=== PATIENT | female | born 1975 | race Caucasian/White ===

== ENCOUNTER 2018-12-25 17:10 | Outpatient (CLI) | payer OTHER ==
[~2018-12-25] VITALS: Ht 157.5 cm; Wt 85.0 kg
[2018-12-25 18:13] VITALS: BP 142/69
[2018-12-25 18:23] LABS: MEAN CORPUSCULAR HEMOGLOBIN 23.6 pg (27.0-34.8); MEAN CORPUSCULAR HGB CONC 31.5 g/dL (32.4-35.8); MEAN CORPUSCULAR VOLUME 74.8 fL (80-100); MEAN PLATELET VOLUME 8.2 fL (7.4-10.4); PLATELET COUNT 309 x10^3/uL (130-400); RED BLOOD COUNT 5.04 x10^6/uL (3.82-5.3); RED CELL DISTRIBUTION WIDTH 25.4 % (9.6-15.2)
[2018-12-25 18:25] LABS: ALANINE AMINOTRANSFERASE 60 U/L (12-78); ALBUMIN 2.4 g/dL (3.4-5.0); ANION GAP 10 mmol/L (5-15); CHLORIDE 112 mmol/L (98-107)
[2018-12-25 18:26] LABS: BILIRUBIN, DIRECT < 0.1 mg/dL (0.1-0.2)
[2018-12-25 18:28] LABS: ALKALINE PHOSPHATASE 141 U/L (45-117); BILIRUBIN,TOTAL 0.1 mg/dL (0.2-1.0); TOTAL PROTEIN 7.1 g/dL (6.4-8.2)
[2018-12-25 18:34] LABS: MICROSCOPIC AUTO
[2018-12-25 18:49] LABS: CREATININE,URINE RANDOM 28.2 mg/dL
[2018-12-25 19:05] LABS: BASOPHILS # (AUTO) 0.01 x10^3/uL (0-0.1); BASOPHILS % (AUTO) 0 % (0-1); EOSINOPHILS # (AUTO) 0.18 x10^3/uL (0-0.4); EOSINOPHILS % (AUTO) 2 % (1-7); LYMPHOCYTES # (AUTO) 2.17 x10^3/uL (1-3.4); LYMPHOCYTES % (AUTO) 23 % (22-44); MD MORPH REVIEW ONLY; MONOCYTES # (AUTO) 0.69 x10^3/uL (0.2-0.8); MONOCYTES % (AUTO) 7 % (2-9); NEUTROPHILS # (AUTO) 6.41 x10^3/uL (1.8-6.8); NEUTROPHILS % (AUTO) 68 % (42-75)
[2018-12-25 19:08] LABS: ANISOCYTOSIS 2+; MICROCYTOSIS 1+; POLYCHROMASIA 1+
[2018-12-25 19:09] LABS: <PLATELET ESTIMATE> ADEQUATE; <PLT MORPHOLOGY> NORMAL PLT MORPH
== END 2018-12-25 19:40 | disposition home or self-care (01) ==
LOC: LDOP 17:10
PROVIDERS: ATTEND Obstetrics & Gynecology
DX: O24.419 Gestational diabetes mellitus in pregnancy, unspecified control (principal); Z3A.34 34 weeks gestation of pregnancy
CPT/HCPCS: 36415; 59025; 80053; 81001; 81050; 82248; 82570; 84156; 84550; 85025; 99201; G0463

== ENCOUNTER 2019-01-12 15:44 | Inpatient (IN) | payer OTHER ==
[~2019-01-12] VITALS: Ht 157.5 cm; Wt 85.9 kg
[2019-01-12] MEDS ORDERED: LACTATED RINGERS 1,000 ML IV SCH (15:55)
[2019-01-12] MEDS ORDERED: OXYTOCIN 30U/ 0.9% NaCL 500ML 500 ML IV ONE (15:55)
[2019-01-12] MEDS ORDERED: METOCLOPRAMIDE 5 MG/ML, 2ML IVPush PRN (16:00)
[2019-01-12] MEDS ORDERED: FENTANYL PF 100 MCG/2ML IV PRN (16:00)
[2019-01-12] MEDS ORDERED: FENTANYL PF 100 MCG/2ML IVPush PRN (16:00)
[2019-01-12] MEDS ORDERED: TERBUTALINE 1 MG/ML, 1ML IVPush PRN (16:00)
[2019-01-12] MEDS ORDERED: SODIUM CITRATE/CITRIC ACID 30 ML UDC PO PRN (16:00)
[2019-01-12] MEDS ORDERED: ONDANSETRON 2MG/ML, 2ML IVPush PRN (16:00)
[2019-01-12 16:38] VITALS: BP 145/69
[2019-01-12] MEDS ORDERED: MISOPROSTOL 200 MCG TABLET ONE (16:48)
[2019-01-12] MEDS ORDERED: MISOPROSTOL 25 MCG TABLET ONE (16:48)
[2019-01-12] MEDS ORDERED: LIDOCAINE 1%, 20ML ONE (16:48)
[2019-01-12] MEDS ORDERED: NEWBORN KIT ONE (16:48)
[2019-01-12] MEDS ORDERED: OXYTOCIN 30U/ 0.9% NaCL 500ML 500 ML ONE (16:49)
[2019-01-12 16:57] LABS: MEAN CORPUSCULAR HEMOGLOBIN 25.5 pg (27.0-34.8); MEAN CORPUSCULAR HGB CONC 33.5 g/dL (32.4-35.8); MEAN CORPUSCULAR VOLUME 75.9 fL (80-100); MEAN PLATELET VOLUME 8.5 fL (7.4-10.4); PLATELET COUNT 261 x10^3/uL (130-400); RED BLOOD COUNT 5.12 x10^6/uL (3.82-5.3); RED CELL DISTRIBUTION WIDTH 25.3 % (9.6-15.2)
[2019-01-12 16:58] LABS: MICROSCOPIC AUTO
[2019-01-12] MEDS ORDERED: SODIUM CHLORIDE FLUSH 10ML SYR IVF PRN (17:00)
[2019-01-12 17:04] LABS: ALANINE AMINOTRANSFERASE 39 U/L (12-78); ALBUMIN 2.4 g/dL (3.4-5.0); ANION GAP 10 mmol/L (5-15); CALCIUM 8.5 mg/dL (8.5-10.1); CHLORIDE 111 mmol/L (98-107); CREATININE 0.34 mg/dL (0.55-1.02)
[2019-01-12] MEDS: MISOPROSTOL 25 MCG TABLET VG PRN (17:05)
[2019-01-12 17:06] LABS: ALKALINE PHOSPHATASE 158 U/L (45-117); BILIRUBIN,TOTAL 0.1 mg/dL (0.2-1.0); TOTAL PROTEIN 6.9 g/dL (6.4-8.2)
[2019-01-12 17:13] LABS: BASOPHILS # (AUTO) 0.03 x10^3/uL (0-0.1); BASOPHILS % (AUTO) 0 % (0-1); EOSINOPHILS # (AUTO) 0.23 x10^3/uL (0-0.4); EOSINOPHILS % (AUTO) 3 % (1-7); LYMPHOCYTES % (AUTO) 25 % (22-44); MD MORPH REVIEW ONLY; MONOCYTES # (AUTO) 0.56 x10^3/uL (0.2-0.8); MONOCYTES % (AUTO) 7 % (2-9); NEUTROPHILS # (AUTO) 4.96 x10^3/uL (1.8-6.8); NEUTROPHILS % (AUTO) 65 % (42-75)
[2019-01-12 17:14] LABS: CREATININE,URINE RANDOM 23.2 mg/dL
[2019-01-12 17:14] LABS: ANISOCYTOSIS 1+; MICROCYTOSIS 1+; POLYCHROMASIA 1+; TEAR DROPS 1+
[2019-01-12 17:15] LABS: <PLATELET ESTIMATE> ADEQUATE; <PLT MORPHOLOGY> NORMAL PLT MORPH; OVALOCYTES 1+; ROULEAUX 1+
[2019-01-12] MEDS ORDERED: ACETAMINOPHEN 325 MG TABLET ONE ×2 (18:26→22:17)
[2019-01-12] MEDS: ACETAMINOPHEN 325 MG TABLET PO PRN ×2 (18:28→22:25)
[2019-01-12] MEDS ORDERED: INSULIN NPH HUMAN 100 UNIT/ML, 3ML VIAL SQ-INSULIN ONE (18:30)
[2019-01-13] MEDS ORDERED: MISOPROSTOL 25 MCG TABLET ONE (00:05)
[2019-01-13] MEDS: MISOPROSTOL 25 MCG TABLET VG PRN (00:16)
[2019-01-13] MEDS ORDERED: OXYTOCIN 30U/ 0.9% NaCL 500ML 500 ML ONE (07:32)
[2019-01-13] MEDS ORDERED: OXYTOCIN 30U/ 0.9% NaCL 500ML 500 ML IV PRN (07:36)
[2019-01-13] MEDS: D5%-LACTATED RINGERS 1,000 ML IV SCH ×2 (07:47→17:12)
[2019-01-13] MEDS ORDERED: FENTANYL PF 100 MCG/2ML ONE ×2 (10:18→10:22)
[2019-01-13 11:05] VITALS: BP 170/77
[2019-01-13] MEDS ORDERED: LABETALOL 200 MG TABLET PO ONE (11:21)
[2019-01-13] MEDS ORDERED: LABETALOL 200 MG TABLET ONE (11:22)
[2019-01-13] MEDS ORDERED: FENTANYL/BUPIV./NS/PF 250 ML EPIDCONT SCH ×2 (11:35→19:12)
[2019-01-13] MEDS ORDERED: SODIUM CHLORIDE 0.9% 1,000 ML IV SCH (12:00)
[2019-01-13] MEDS ORDERED: FENTANYL PF 500 MCG, BUPIVACAINE/PF 0.5%, 30ML 62.5 ML in SODIUM CHLORIDE 0.9% 177.5 ML EPIDCONT SCH (12:00)
[2019-01-13] MEDS ORDERED: LIDOCAINE/PF 1.5%-EPI 1:200K, 30ML ONE ×2 (12:56→13:02)
[2019-01-13] MEDS ORDERED: FENTANYL/BUPIV./NS/PF 250 ML EPIDCONT ONE (13:02)
[2019-01-13] MEDS ORDERED: BUPIVACAINE 0.25% ONE (13:02)
[2019-01-13] MEDS ORDERED: LACTATED RINGERS 1,000 ML IV SCH (19:12)
[2019-01-13] MEDS ORDERED: DIPHENHYDRAMINE 50 MG/ML, 1ML IVPush PRN (19:30)
[2019-01-13] MEDS ORDERED: ONDANSETRON 2MG/ML, 2ML IVPush PRN (19:30)
[2019-01-13] MEDS ORDERED: EPHEDRINE 50 MG/ML, 1ML IVPush PRN (19:30)
[2019-01-13] MEDS ORDERED: LACTATED RINGERS 1,000 ML IVBOLUS PRN (19:30)
[2019-01-13] MEDS ORDERED: NALOXONE 0.4 MG/ML, 1ML IVPush PRN (19:30)
[2019-01-13 20:00] VITALS: BP 137/73
[2019-01-13] MEDS ORDERED: ACETAMINOPHEN 325 MG TABLET ONE (22:16)
[2019-01-13] MEDS: ACETAMINOPHEN 325 MG TABLET PO PRN (22:22)
[2019-01-14] MEDS: D5%-LACTATED RINGERS 1,000 ML IV SCH (00:27)
[2019-01-14] MEDS: OXYTOCIN 30U/ 0.9% NaCL 500ML 500 ML IV SCH ×3 (02:06→22:06)
[2019-01-14] MEDS ORDERED: IBUPROFEN 600 MG TABLET ONE (02:23)
[2019-01-14] MEDS ORDERED: OXYcodone/APAP 5/325MG TABLET ONE (02:23)
[2019-01-14] MEDS: OXYcodone/APAP 5/325MG TABLET PO PRN ×4 (02:26→19:32)
[2019-01-14] MEDS: IBUPROFEN 600 MG TABLET PO PRN ×3 (02:27→19:31)
[2019-01-14] MEDS ORDERED: DOCUSATE 100 MG CAPSULE PO PRN (02:30)
[2019-01-14] MEDS ORDERED: OXYTOCIN 10 UNITS/ML, 1ML IM PRN (02:30)
[2019-01-14] MEDS ORDERED: OXYcodone IR 5MG TABLET PO PRN (02:30)
[2019-01-14] MEDS ORDERED: MISOPROSTOL 200 MCG TABLET PR PRN (02:30)
[2019-01-14] MEDS ORDERED: ONDANSETRON 2MG/ML, 2ML IV PRN (02:30)
[2019-01-14] MEDS ORDERED: ACETAMINOPHEN 325 MG TABLET PO PRN (02:30)
[2019-01-14 04:20] VITALS: BP 132/75
[2019-01-14 07:30] VITALS: BP 136/76
[2019-01-14] MEDS: PRENATAL VIT/IRON/FA 1 EACH TABLET PO SCH (08:08)
[2019-01-14 10:18] LABS: BASOPHILS # (AUTO) 0.03 x10^3/uL (0-0.1); BASOPHILS % (AUTO) 0 % (0-1); EOSINOPHILS % (AUTO) 1 % (1-7); LYMPHOCYTES # (AUTO) 1.81 x10^3/uL (1-3.4); LYMPHOCYTES % (AUTO) 15 % (22-44); MD MORPH REVIEW ONLY; MEAN CORPUSCULAR HEMOGLOBIN 24.4 pg (27.0-34.8); MEAN CORPUSCULAR HGB CONC 31.7 g/dL (32.4-35.8); MEAN PLATELET VOLUME 8.9 fL (7.4-10.4); MONOCYTES # (AUTO) 0.64 x10^3/uL (0.2-0.8); MONOCYTES % (AUTO) 5 % (2-9); NEUTROPHILS # (AUTO) 9.44 x10^3/uL (1.8-6.8); NEUTROPHILS % (AUTO) 79 % (42-75); PLATELET COUNT 206 x10^3/uL (130-400); RED BLOOD COUNT 4.81 x10^6/uL (3.82-5.3); RED CELL DISTRIBUTION WIDTH 25.6 % (9.6-15.2)
[2019-01-14 10:53] LABS: ANISOCYTOSIS 2+; MICROCYTOSIS 1+
[2019-01-14 10:55] LABS: <PLATELET ESTIMATE> ADEQUATE; <PLT MORPHOLOGY> NORMAL PLT MORPH; HYPOCHROMIA 1+; OVALOCYTES 1+
[2019-01-14 12:00] VITALS: BP 149/76
[2019-01-14 15:30] VITALS: BP 144/77
[2019-01-14 20:00] VITALS: BP 130/62
[2019-01-14] MEDS ORDERED: DIPH,PERTUSS(ACELL),TET VAC/PF NC IM-VACC ONE (20:00)
[2019-01-15 00:30] VITALS: BP 136/79
[2019-01-15] MEDS: OXYcodone/APAP 5/325MG TABLET PO PRN ×2 (01:27→15:15)
[2019-01-15] MEDS: IBUPROFEN 600 MG TABLET PO PRN ×2 (01:27→15:15)
[2019-01-15 07:30] VITALS: BP 146/78
[2019-01-15] MEDS: OXYTOCIN 30U/ 0.9% NaCL 500ML 500 ML IV SCH (08:06)
[2019-01-15] MEDS: PRENATAL VIT/IRON/FA 1 EACH TABLET PO SCH (09:00)
[2019-01-15] MEDS ORDERED: DIPH,PERTUSS(ACELL),TET VAC/PF NC IM-VACC ONE (09:17)
[2019-01-15] MEDS ORDERED: IBUP-1222 PO (13:21)
[2019-01-15] MEDS ORDERED: OXYC-302 PO (13:21)
== END 2019-01-15 16:05 | disposition home or self-care (01) | DRG 807 ==
LOC: LDIP 15:44 → MERGE 15:44 → 2NW 01-14 04:10
PROVIDERS: ADMIT Obstetrics & Gynecology; ATTEND Obstetrics & Gynecology
PROC: 0HQ9XZZ Repair Perineum Skin, External Approach (ICD-10-PCS; principal; 2019-01-14)
PROC: 10E0XZZ Delivery of Products of Conception, External Approach (ICD-10-PCS; 2019-01-14)
PROC: 3E0R3BZ Introduction of Anesthetic Agent into Spinal Canal, Percutaneous Approach (ICD-10-PCS; 2019-01-14)
PROC: 00HU33Z Insertion of Infusion Device into Spinal Canal, Percutaneous Approach (ICD-10-PCS; 2019-01-14)
PROC: 10907ZC Drainage of Amniotic Fluid, Therapeutic from Products of Conception, Via Natural or Artificial Opening (ICD-10-PCS; 2019-01-14)
DX: O13.4 Gestational [pregnancy-induced] hypertension without significant proteinuria, complicating childbirth (principal); Z37.0 Single live birth; O69.81X0 Labor and delivery complicated by cord around neck, without compression, not applicable or unspecified; O24.424 Gestational diabetes mellitus in childbirth, insulin controlled; Z3A.37 37 weeks gestation of pregnancy; O70.0 First degree perineal laceration during delivery
CPT/HCPCS: 36415; J7121; 80053; 81001; 82570; 82803; 82962; 84156; 84550; 85025; 86850; 86900; G0378; J1815; J3010; J3490; J2590; J7030; J7120